=== PATIENT | female | born 1945 | race Caucasian/White ===

== ENCOUNTER → 2019-08-09 | Outpatient (CLI) | payer MEDICARE, OTHER ==
--- NOTE | 2019-08-09 11:55 | RAD ---
Indication: Postmenopausal screening for osteoporosis. Follow-up study. COMPARISON: December 25, 2015. Bone Density: -BMD: (g/cm2) - AP Spine Total (L1-L4)..........1.018. - Total right Hip.................0.668. T-Score: - AP Spine Total (L1-L4).........-1.4. - Total right Hip.................-2.3. Z-Score: - AP Spine Total (L1-L4)..........0.1. - Total right Hip.................-0.9. World Health Organization criteria for BMD interpretation classify patients as Normal (T-score at or above -1.0), Osteopenic (T-score between -1.0 and -2.5), or Osteoporotic (T-score at or below -2.5). Impression: 1. AP Spine Total L1-L4---osteopenia. Since the previous study, there has been a decrease in the BMD of 6 percent.. 2. Total right Hip---osteopenia. Since the previous study, there has been a decrease in the BMD of 8 percent. Electronically signed by: Ashish Gasca MD (08/09/2019 11:52 AM) [id number]
== END | disposition home or self-care (01) ==
LOC: DXRAD 10:07
PROVIDERS: ATTEND Specialist
DX: Z12.31 Encounter for screening mammogram for malignant neoplasm of breast (principal); M85.88 Other specified disorders of bone density and structure, other site
CPT/HCPCS: 77063; 77067; 77080

== ENCOUNTER → 2020-08-09 | Outpatient (CLI) | payer MEDICARE, OTHER ==
--- NOTE | 2020-08-10 14:03 | RAD ---
DATE: 08/09/2020 EXAM: MAMMO GERMAN SCREENING BILATERAL HISTORY: Screening COMPARISON: Multiple prior exams dating back to 10/06/2014 This study was interpreted with the benefit of Computerized Aided Detection (CAD). Breast Density: SCATTERED The breast parenchyma shows scattered fibroglandular densities. Breast parenchyma level B. FINDINGS: An intramammary lymph node in the upper outer right breast is unchanged from 2015. No suspicious mass, calcifications, or architectural distortion in either breast. IMPRESSION: No evidence of malignancy. BI-RADS CATEGORY: 1 NEGATIVE RECOMMENDED FOLLOW-UP: 12M 12 MONTH FOLLOW-UP PQRS compliance statement: Patient information was entered into a reminder system with a target due date for the next mammogram. Mammography is a sensitive method for finding small breast cancers, but it does not detect them all and is not a substitute for careful clinical examination. A negative mammogram does not negate a clinically suspicious finding and should not result in delay in biopsying a clinically suspicious abnormality. "Our facility is accredited by the [employer] Mammography Program."
== END ==
LOC: MAMMO 11:43
PROVIDERS: ATTEND Specialist
DX: Z12.31 Encounter for screening mammogram for malignant neoplasm of breast (principal)
CPT/HCPCS: 77063; 77067